=== PATIENT | male | born 1985 | race Two or more races ===

== ENCOUNTER 2017-04-16 19:12 | Emergency (ER) | payer OTHER ==
[~2017-04-16] VITALS: Ht 152.4 cm; Wt 68.0 kg
[2017-04-16 19:28] VITALS: BP 144/68
== END 2017-04-16 19:54 | disposition home or self-care (01) ==
LOC: ER 19:14 → EDBD 19:14 → ER 19:54
DX: Z02.89 Encounter for other administrative examinations (principal)
CPT/HCPCS: A4606; Z7610